=== PATIENT | male | born 1950 | race Caucasian/White ===

== ENCOUNTER 2021-11-15 17:33 | Emergency (ER) | payer MEDICARE ==
[2021-11-15 17:43] VITALS: TEMP 98.4
[2021-11-15] MEDS ORDERED: SODIUM CHLORIDE 0.9% 1,000 ML IV STA (18:18)
--- NOTE | 2021-11-15 18:22 | ED ---
General Adult HPI - General Chief complaint: Syncope Stated complaint: syncope Time Seen by Provider: 11/15/21 17:36 Source: patient, RN/MD Mode of arrival: ambulatory Limitations: no limitations - History of Present Illness Initial comments: 71-year-old patient presents to the emergency department today for evaluation after having a syncopal episode. Patient sat on the couch, states that his head fell back his eyes were wide open and he was making a moaning noise when he was breathing. She went over and was talking to him but he was not responding. She did try chest compressions while he was sitting on the couch. Her son came in and lowered him to the floor and was smacking his cheeks trying to get him to wake. She states the episode lasted about 5 minutes then he started coming around. Patient states that all he remembers is sitting on the couch and putting his head back. He does admit to taking a hit of marijuana several minutes before this episode but this is not unusual form him and he has never had this reaction. He denies any headache, blurred vision, double vision, dizziness, weakness. Denies any chest pain or shortness of breath. Denies any palpitations. Denies any abdominal or back pain. Does have history of aortic aneurysm that has been stented. Patient denies any recent rash, fever, chills, cough, nausea, vomiting, diarrhea, constipation, back pain, numbness, tingling, hematuria, dysuria, urinary urgency, urinary frequency, headache, visual changes, or any other complaints. - Related Data Allergies Allergy/AdvReac Type Severity Reaction Status Date / Time No Known Allergies Allergy Verified 11/15/21 17:56 Review of Systems ROS Statement: Those systems with pertinent positive or pertinent negative responses have been documented in the HPI. ROS Other: All systems not noted in ROS Statement are negative. Past Medical History Past Medical History: COPD History of Any Multi-Drug Resistant Organisms: None Reported Past Surgical History: No Surgical Hx Reported Additional Past Surgical History / Comment(s): Stent placed 2018 Past Psychological History: No Psychological Hx Reported Smoking Status: Current every day smoker Past Alcohol Use History: Occasional Past Drug Use History: Marijuana General Exam Limitations: no limitations General appearance: alert, in no apparent distress, other (This is a well- developed, well-nourished elderly male patient in no acute distress.) Eye exam: Present: normal appearance, PERRL, EOMI. Absent: scleral icterus, conjunctival injection, nystagmus, periorbital swelling Respiratory exam: Present: normal lung sounds bilaterally. Absent: respiratory distress, wheezes, rales, rhonchi, stridor Cardiovascular Exam: Present: regular rate, normal rhythm, normal heart sounds. Absent: systolic murmur, diastolic murmur, rubs, gallop, clicks GI/Abdominal exam: Present: soft, normal bowel sounds. Absent: distended, tenderness, guarding, rebound, rigid Neurological exam: Present: alert, oriented X3, CN II-XII intact, other (Strength in all 4 extremities is 5/5.) Psychiatric exam: Present: normal affect, normal mood Skin exam: Present: warm, dry, intact, normal color. Absent: rash Course Vital Signs 11/15/21 17:35 Temperature 98.4 F Pulse Rate 68 Respiratory 18 Rate Blood Pressure 151/89 O2 Sat by Pulse 99 Oximetry EKG Findings - EKG Comments: EKG Findings:: EKG obtained at 1753 shows sinus rhythm with ventricular 70, WI interval 147, QRS duration 114, QTC 415, QTC 436. No evidence of ST elevation or depression. Medical Decision Making - Medical Decision Making 71 year-old male patient presents to the emergency department for evaluation after syncopal episodes. Physical examination is unremarkable. Vital signs within normal range. EKG shows sinus rhythm. Labs reviewed and did reveal elevated d-dimer 3.6. CT angiography of the chest was obtained and was negative for any evidence for pulmonary embolism or other acute abnormalities. Upon reevaluation is resting comfortably in bed states he is feeling well. He is given a option to be discharged follow up with his primary care physician early next week. He agrees to be discharged. Return parameters were discussed in detail. Patient and verbalized understanding and agree with this plan. My attending is Dr. Javed. - Lab Data Result diagrams: 11/15/21 18:29 11/15/21 18:29 Lab Results 11/15/21 11/15/21 11/15/21 Range/Units 18:29 18:29 18:29 WBC 9.5 (3.8-10.6) k/uL RBC 4.36 (4.30-5.90) m/uL Hgb 12.8 L (13.0-17.5) gm/dL Hct 38.9 L (39.0-53.0) % MCV 89.2 (80.0-100.0) fL MCH 29.4 (25.0-35.0) pg MCHC 33.0 (31.0-37.0) g/dL RDW 13.6 (11.5-15.5) % Plt Count 225 (150-450) k/uL MPV 6.8 Neutrophils % 76 % Lymphocytes % 15 % Monocytes % 5 % Eosinophils % 2 % Basophils % 0 % Neutrophils # 7.2 (1.3-7.7) k/uL Lymphocytes # 1.4 (1.0-4.8) k/uL Monocytes # 0.5 (0-1.0) k/uL Eosinophils # 0.2 (0-0.7) k/uL Basophils # 0.0 (0-0.2) k/uL PT 10.2 (9.0-12.0) sec INR 0.9 (<1.2) APTT 22.7 (22.0-30.0) sec D-Dimer 3.65 H (<0.60) mg/L FEU Sodium (137-145) mmol/L Potassium (3.5-5.1) mmol/L Chloride (98-107) mmol/L Carbon Dioxide (22-30) mmol/L Anion Gap mmol/L BUN (9-20) mg/dL Creatinine (0.66-1.25) mg/dL Est GFR (CKD-EPI)AfAm (>60 ml/min/1.73 sqM) Est GFR (CKD-EPI)NonAf (>60 ml/min/1.73 sqM) Glucose (74-99) mg/dL Calcium (8.4-10.2) mg/dL Total Bilirubin (0.2-1.3) mg/dL AST (17-59) U/L ALT (4-49) U/L Alkaline Phosphatase (38-126) U/L Troponin I (0.000-0.034) ng/mL Total Protein (6.3-8.2) g/dL Albumin (3.5-5.0) g/dL Urine Color Light Yellow Urine Appearance Clear (Clear) Urine pH 6.0 (5.0-8.0) Ur Specific [place] 1.006 (1.001-1.035) Urine Protein Negative (Negative) Urine Glucose (UA) Negative (Negative) Urine Ketones Negative (Negative) Urine Blood Negative (Negative) Urine Nitrite Negative (Negative) Urine Bilirubin Negative (Negative) Urine Urobilinogen <2.0 (<2.0) mg/dL Ur Leukocyte Esterase Negative (Negative) 11/15/21 11/15/21 Range/Units 18:29 18:29 WBC (3.8-10.6) k/uL RBC (4.30-5.90) m/uL Hgb (13.0-17.5) gm/dL Hct (39.0-53.0) % MCV (80.0-100.0) fL MCH (25.0-35.0) pg MCHC (31.0-37.0) g/dL RDW (11.5-15.5) % Plt Count (150-450) k/uL MPV Neutrophils % % Lymphocytes % % Monocytes % % Eosinophils % % Basophils % % Neutrophils # (1.3-7.7) k/uL Lymphocytes # (1.0-4.8) k/uL Monocytes # (0-1.0) k/uL Eosinophils # (0-0.7) k/uL Basophils # (0-0.2) k/uL PT (9.0-12.0) sec INR (<1.2) APTT (22.0-30.0) sec D-Dimer (<0.60) mg/L FEU Sodium 136 L (137-145) mmol/L Potassium 3.7 (3.5-5.1) mmol/L Chloride 106 (98-107) mmol/L Carbon Dioxide 22 (22-30) mmol/L Anion Gap 8 mmol/L BUN 17 (9-20) mg/dL Creatinine 1.06 (0.66-1.25) mg/dL Est GFR (CKD-EPI)AfAm 82 (>60 ml/min/1.73 sqM) Est GFR (CKD-EPI)NonAf 71 (>60 ml/min/1.73 sqM) Glucose 128 H (74-99) mg/dL Calcium 8.5 (8.4-10.2) mg/dL Total Bilirubin 0.5 (0.2-1.3) mg/dL AST 27 (17-59) U/L ALT 17 (4-49) U/L Alkaline Phosphatase 98 (38-126) U/L Troponin I <0.012 (0.000-0.034) ng/mL Total Protein 6.6 (6.3-8.2) g/dL Albumin 3.7 (3.5-5.0) g/dL Urine Color Urine Appearance (Clear) Urine pH (5.0-8.0) Ur Specific [place] (1.001-1.035) Urine Protein (Negative) Urine Glucose (UA) (Negative) Urine Ketones (Negative) Urine Blood (Negative) Urine Nitrite (Negative) Urine Bilirubin (Negative) Urine Urobilinogen (<2.0) mg/dL Ur Leukocyte Esterase (Negative) - Radiology Data Radiology results: report reviewed, image reviewed Two-view x-ray of the chest is obtained. Report was reviewed in its entirety. Impression by Dr. Batista shows normal chest. CT chest angiography for PE was obtained. Report was reviewed in its entirety. Impression by Dr. Batista shows no evidence of pulmonary embolism. 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 No dissection. Disposition Clinical Impression: Syncope Disposition: HOME SELF-CARE Condition: Good Instructions (If sedation given, give patient instructions): Syncope (ED) Additional Instructions: Follow up with your primary care physician or channeling machine operator as soon as possible. Increase fluids. Rest. Return to the emergency department immediately for any return of symptoms. Is patient prescribed a controlled substance at d/c from ED?: No Referrals: Nonstaff,Physician [Primary Care Provider] - 1-2 days Time of Disposition: 20:14
[2021-11-15 18:37] LABS: Basophils % (A) 0 %; Eosinophils # (A) 0.2 k/uL (0-0.7); Eosinophils % (A) 2 %; HCT 38.9 % (39.0-53.0); HGB 12.8 gm/dL (13.0-17.5); Lymphocytes # (A) 1.4 k/uL (1.0-4.8); Lymphocytes % (A) 15 %; MCH 29.4 pg (25.0-35.0); MCV 89.2 fL (80.0-100.0); Mean Platelet Volume 6.8; Monocytes # (A) 0.5 k/uL (0-1.0); Monocytes % (A) 5 %; Neutrophils # (A) 7.2 k/uL (1.3-7.7); Neutrophils % (A) 76 %; Platelet Count 225 k/uL (150-450); RBC 4.36 m/uL (4.30-5.90); RDW 13.6 % (11.5-15.5); WBC 9.5 k/uL (3.8-10.6)
[2021-11-15 18:46] LABS: Albumin 3.7 g/dL (3.5-5.0); Calcium 8.5 mg/dL (8.4-10.2); Potassium 3.7 mmol/L (3.5-5.1); Total Bilirubin 0.5 mg/dL (0.2-1.3); Total Protein 6.6 g/dL (6.3-8.2)
[2021-11-15 18:50] LABS: Appearance,Urine Clear (Clear); Bilirubin,Urine Negative (Negative); Blood,Urine Negative (Negative); Color,Urine Light Yellow; Glucose,Urine (UA) Negative (Negative); Ketones,Urine Negative (Negative); Leukocyte Esterase,Urine Negative (Negative); Nitrite,Urine Negative (Negative); Protein,Urine Negative (Negative); Specific Gravity,Urine 1.006 (1.001-1.035); Urobilinogen,Urine <2.0 mg/dL (<2.0)
[2021-11-15 18:54] LABS: INR 0.9 (<1.2); Partial Thromboplastin Time 22.7 sec (22.0-30.0); Prothrombin Time 10.2 sec (9.0-12.0)
--- NOTE | 2021-11-15 19:12 | XR ---
EXAMINATION TYPE: XR chest 2V DATE OF EXAM: 11/15/2021 COMPARISON: NONE HISTORY: Syncope TECHNIQUE: FINDINGS: Heart and mediastinum are normal. Lungs are clear. Diaphragm is normal. Bony thorax is inta ct. IMPRESSION: Normal chest
--- NOTE | 2021-11-15 19:37 | CT ---
EXAMINATION TYPE: CT chest angio for PE DATE OF EXAM: 11/15/2021 COMPARISON: None HISTORY: Elevated d-dimer; syncope CT DLP: 415.4 mGycm Automated exposure control for dose reduction was used. CONTRAST: Performed with IV Contrast, patient injected with 100 mL of Isovue 370. Images obtained from the thoracic inlet to the diaphragm with IV contrast. There are Three-D postproc essed images. The lungs are clear of consolidation. There is some mild reticular interstitial density in the tobacco blender ior lung aldana suggestive of mild fibrosis and subsegmental atelectasis. Heart size is fairly normal . There is irregular plaque on the posterior wall of the descending thoracic aorta. 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 No mediastinal adenopathy. The ascending aort a measures 4 cm. No dissection. There is no evidence of filling defect in the pulmonary arteries. There are no hilar masses. The thoracic spine appears intact. No compression fracture. Sternum is intact. IMPRESSION: No evidence of pulmonary embolism. There is a mild 4 cm aneurysm of the ascending aorta. No dissectio n.
[2021-11-15 20:59] VITALS: BP 111/69; PULSE 70; RESP 16
== END 2021-11-15 20:59 | disposition home or self-care (01) ==
LOC: EC 17:33
DX: R55 Syncope and collapse (principal); J44.9 Chronic obstructive pulmonary disease, unspecified; F17.200 Nicotine dependence, unspecified, uncomplicated
CPT/HCPCS: 36415; 85379; 80053; 84484; 85025; 85610; 85730; 81003; 71046; 71275; 99284; 96360; Q9967

== ENCOUNTER 2022-06-16 12:11 | Emergency (ER) | payer MEDICARE ==
--- NOTE | 2022-06-16 13:12 | ED ---
General Adult HPI - General Source: patient, RN notes reviewed Mode of arrival: ambulatory Limitations: no limitations <Arthur Forrester - Last Filed: 06/16/22 13:11> <Cresencio Townsend - Last Filed: 06/16/22 15:22> - General Chief complaint: Neuro Symptoms/Deficit Stated complaint: Vertigo,Sent by Urgent Care Time Seen by Provider: 06/16/22 13:04 - History of Present Illness Initial comments: 72-year-old male presents emergency Department chief complaint of dizziness. Patient states on Wednesday he woke up early in the morning states that he was very lightheaded, dizzy states he is unsteady on his feet he states that he went back to bed and laid there for several hours. He states he had no symptoms at rest but it got up he had worsening symptoms. Patient states she still remains to have intermittent symptoms, feeling foggy over the last 3 days. Patient was seen at urgent care sent here for further evaluation. Patient denies chest pain, headache, blurred vision, focal weakness, nausea vomiting. (Arthur Forrester) This is a patient that was seen initially in the waiting room is a 72-year-old male who states 3 days ago he got out of bed the whole room was spinning and he had a old on the ren walk to the bathroom. Patient states this has happened in the past for multiple times but normally it resolves on its own. Patient states it has not resolved I did get a little bit better on Wednesday but continued today so he went to urgent care and urgent care sent him in to see us currently he states things are still moving a little but not as bad as it has been. Patient states this morning he drinks multiple was very nauseated and vomited times one. Patient denies any numbness or weakness. Patient denies any headache per patient states he does have ringing in both of his ears this is a symptom he has also had in the past but it has resolved on its own normally and is yet to resolve. Patient denies any palpitations chest pain difficulty breathing first breath per patient denies any fever chills or cough. Patient has probably patient's nausea vomiting diarrhea. (Cresencio Townsend) - Related Data Home Medications Medication Instructions Recorded Confirmed Levothyroxine Sodium [Synthroid] 175 mcg PO AC-BRKFST 06/16/22 06/16/22 Losartan Potassium 100 mg PO DAILY 06/16/22 06/16/22 Meloxicam [Mobic] 15 mg PO DAILY 06/16/22 06/16/22 Omeprazole [PriLOSEC] 20 mg PO HS 06/16/22 06/16/22 Simvastatin [Zocor] 20 mg PO HS 06/16/22 06/16/22 amLODIPine [Norvasc] 5 mg PO AC-SUPPER 06/16/22 06/16/22 Previous Rx's Medication Instructions Recorded Meclizine [Antivert] 25 mg PO TID #20 tab 06/16/22 Allergies Allergy/AdvReac Type Severity Reaction Status Date / Time No Known Allergies Allergy Verified 06/16/22 15:12 Review of Systems ROS Other: All systems not noted in ROS Statement are negative. <Arthur Forrester - Last Filed: 06/16/22 13:11> ROS Other: All systems not noted in ROS Statement are negative. <Cresencio Townsend - Last Filed: 06/16/22 15:22> ROS Statement: Those systems with pertinent positive or pertinent negative responses have been documented in the HPI. Past Medical History Past Medical History: COPD, Hyperlipidemia, Hypertension History of Any Multi-Drug Resistant Organisms: None Reported Past Surgical History: No Surgical Hx Reported Additional Past Surgical History / Comment(s): Stent placed 2018 Past Psychological History: No Psychological Hx Reported Smoking Status: Former smoker Past Alcohol Use History: Occasional Past Drug Use History: Marijuana <Arthur Forrester - Last Filed: 06/16/22 13:11> General Exam Limitations: no limitations <Arthur Forrester - Last Filed: 06/16/22 13:11> <Cresencio Townsend - Last Filed: 06/16/22 15:22> - General Exam Comments Initial Comments: GENERAL: Patient is well-developed and well-nourished. Patient is nontoxic and well- hydrated and is in mild distress. ENT: Neck is soft and supple. No significant lymphadenopathy is noted. Oropharynx is clear. Moist mucous membranes. Neck has full range of motion without eliciting any pain. EYES: The sclera were anicteric and conjunctiva were pink and moist. Extraocular movements were intact and pupils were equal round and reactive to light. Eyel ids were unremarkable. PULMONARY: Unlabored respirations. Good breath sounds bilaterally. No audible rales rhonchi or wheezing was noted. CARDIOVASCULAR: There is a regular rate and rhythm without any murmurs gallops or rubs. ABDOMEN: Soft and nontender with normal bowel sounds. SKIN: Skin is clear with no lesions or rashes and otherwise unremarkable. NEUROLOGIC: Patient is alert and oriented x3. Cranial nerves II through XII are grossly intact. Motor and sensory are also intact. Normal speech, volume and content. Symmetrical smile. Finger nose testing is normal bilaterally MUSCULOSKELETAL: Normal extremities with adequate strength and full range of motion. No lower extremity swelling or edema. No calf tenderness. LYMPHATICS: No significant lymphadenopathy is noted PSYCHIATRIC: Normal psychiatric evaluation. (Cresencio Townsend) Course Vital Signs 06/16/22 13:00 Temperature 97.7 F Pulse Rate 80 Respiratory 17 Rate Blood Pressure 153/79 O2 Sat by Pulse 98 Oximetry Medical Decision Making - Lab Data Result diagrams: 06/16/22 14:21 06/16/22 14:21 <Cresencio Townsend - Last Filed: 06/16/22 15:22> - Medical Decision Making Was pt. sent in by a medical professional or institution? @ -Sent in by an urgent care Did you speak to anyone other than the patient for history? @ -I spoke with his for some of the history Did you review nursing and triage notes? @ -I agreed with the nurse he knows and triage notes Were old charts reviewed? @ -No old charts were reviewed Differential Diagnosis? @ -Mnire's disease, vertigo, acoustic neuroma, cerebellar bleed EKG interpreted by me (3pts min.)? @ -EKG shows sinus rhythm at [address] interval 152 QRS is 113 QT interval 426 QTC is 427 per patient's EKG shows no ST segment elevation or depression. X-rays interpreted by me (1pt min.)? @ -[none] CT interpreted by me (1pt min.)? @ -Computed tomography scan showed no acute abnormality there was some fluid in the mastoid on the right however clinically he does not have mastoiditis U/S interpreted by me (1pt. min.)? @ -None What testing was considered but not performed? (CT, X-rays, U/S, labs)? Why? @ -I considered a computed tomography scan shows the head and neck however patient was having no neurologic deficit that I could appreciate cerebellar function was good so at this time I did not do the angiogram. What meds were considered but not given? Why? @ -None Did you discuss the management of the patient with other professionals? @ -None Did you reconcile home meds? @ -No Was smoking cessation discussed for >3mins.? @ -I discussed smoking cessation for greater than 3 minutes. The risk of smoking were discussed with the patient including but not limited to risks of cancer, stroke, coronary artery disease and COPD. Also discussed with patient were multiple methods of quitting smoking. Lastly we discussed the financial cost of smoking. Was critical care preformed (if so, how long)? @ -None Were there social determinants of health that impacted care today? How? (Homelessness, low income, unemployed, alcoholism, drug addiction, transportation, low edu. Level, literacy, decrease access to med. care, care home, rehab)? @ -No Was there de-escalation of care discussed even if they declined? (Discuss DNR or withdrawal of care, Hospice)? @ -No What co-morbidities impacted this encounter? (DM, HTN, Smoking, COPD, CAD, Cancer, CVA, Hep., AIDS, mental health diagnosis, sleep apnea, morbid obesity)? @ -No Was patient admitted / discharged? @ -Discharged with Antivert and patient was instructed to follow-up with ENT if symptoms don't resolve Undiagnosed new problem with uncertain prognosis? @ -No Drug Therapy requiring intensive monitoring for toxicity (Heparin, Nitro, Insulin, Cardizem)? @ -No Were any procedures done? @ -No Diagnosis/symptom? @ -Vertigo Acute, or Chronic, or Acute on Chronic? @ -Acute Uncomplicated (without systemic symptoms) or Complicated (systemic symptoms)? @ -Uncomplicated Side effects of treatment? @ -None Exacerbation, Progression, or Severe Exacerbation] @ -No Poses a threat to life or bodily function? @ -No (Cresencio Townsend) - Lab Data Lab Results 06/16/22 06/16/22 06/16/22 Range/Units 14:21 14:21 14:21 WBC 7.1 (3.8-10.6) k/uL RBC 4.82 (4.30-5.90) m/uL Hgb 13.8 (13.0-17.5) gm/dL Hct 42.0 (39.0-53.0) % MCV 87.3 (80.0-100.0) fL MCH 28.7 (25.0-35.0) pg MCHC 32.9 (31.0-37.0) g/dL RDW 13.3 (11.5-15.5) % Plt Count 250 (150-450) k/uL MPV 7.1 Neutrophils % 74 % Lymphocytes % 18 % Monocytes % 5 % Eosinophils % 2 % Basophils % 1 % Neutrophils # 5.2 (1.3-7.7) k/uL Lymphocytes # 1.2 (1.0-4.8) k/uL Monocytes # 0.4 (0-1.0) k/uL Eosinophils # 0.1 (0-0.7) k/uL Basophils # 0.0 (0-0.2) k/uL PT (9.0-12.0) sec INR (<1.2) APTT (22.0-30.0) sec Sodium 140 (137-145) mmol/L Potassium 4.2 (3.5-5.1) mmol/L Chloride 109 H (98-107) mmol/L Carbon Dioxide 24 (22-30) mmol/L Anion Gap 7 mmol/L BUN 10 (9-20) mg/dL Creatinine 1.00 (0.66-1.25) mg/dL Est GFR (CKD-EPI)AfAm 87 (>60 ml/min/1.73 sqM) Est GFR (CKD-EPI)NonAf 75 (>60 ml/min/1.73 sqM) Glucose 99 (74-99) mg/dL Calcium 9.2 (8.4-10.2) mg/dL Magnesium 1.9 (1.6-2.3) mg/dL Total Bilirubin 0.4 (0.2-1.3) mg/dL AST 27 (17-59) U/L ALT 22 (4-49) U/L Alkaline Phosphatase 94 (38-126) U/L Troponin I <0.012 (0.000-0.034) ng/mL Total Protein 6.9 (6.3-8.2) g/dL Albumin 3.9 (3.5-5.0) g/dL 06/16/22 Range/Units 14:21 WBC (3.8-10.6) k/uL RBC (4.30-5.90) m/uL Hgb (13.0-17.5) gm/dL Hct (39.0-53.0) % MCV (80.0-100.0) fL MCH (25.0-35.0) pg MCHC (31.0-37.0) g/dL RDW (11.5-15.5) % Plt Count (150-450) k/uL MPV Neutrophils % % Lymphocytes % % Monocytes % % Eosinophils % % Basophils % % Neutrophils # (1.3-7.7) k/uL Lymphocytes # (1.0-4.8) k/uL Monocytes # (0-1.0) k/uL Eosinophils # (0-0.7) k/uL Basophils # (0-0.2) k/uL PT 9.6 (9.0-12.0) sec INR 0.9 (<1.2) APTT 23.7 (22.0-30.0) sec Sodium (137-145) mmol/L Potassium (3.5-5.1) mmol/L Chloride (98-107) mmol/L Carbon Dioxide (22-30) mmol/L Anion Gap mmol/L BUN (9-20) mg/dL Creatinine (0.66-1.25) mg/dL Est GFR (CKD-EPI)AfAm (>60 ml/min/1.73 sqM) Est GFR (CKD-EPI)NonAf (>60 ml/min/1.73 sqM) Glucose (74-99) mg/dL Calcium (8.4-10.2) mg/dL Magnesium (1.6-2.3) mg/dL Total Bilirubin (0.2-1.3) mg/dL AST (17-59) U/L ALT (4-49) U/L Alkaline Phosphatase (38-126) U/L Troponin I (0.000-0.034) ng/mL Total Protein (6.3-8.2) g/dL Albumin (3.5-5.0) g/dL Disposition <Arthur Forrester - Last Filed: 06/16/22 13:11> Is patient prescribed a controlled substance at d/c from ED?: No Time of Disposition: 15:21 <Cresencio Townsend - Last Filed: 06/16/22 15:22> Clinical Impression: Vertigo Disposition: HOME SELF-CARE Condition: Good Prescriptions: Meclizine [Antivert] 25 mg PO TID #20 tab Referrals: None,Stated [REFERRING] - 1-2 days
[2022-06-16 14:38] LABS: Basophils % (A) 1 %; Eosinophils # (A) 0.1 k/uL (0-0.7); Eosinophils % (A) 2 %; HGB 13.8 gm/dL (13.0-17.5); Lymphocytes # (A) 1.2 k/uL (1.0-4.8); Lymphocytes % (A) 18 %; MCH 28.7 pg (25.0-35.0); MCHC 32.9 g/dL (31.0-37.0); MCV 87.3 fL (80.0-100.0); Mean Platelet Volume 7.1; Monocytes # (A) 0.4 k/uL (0-1.0); Monocytes % (A) 5 %; Neutrophils # (A) 5.2 k/uL (1.3-7.7); Neutrophils % (A) 74 %; Platelet Count 250 k/uL (150-450); RBC 4.82 m/uL (4.30-5.90); RDW 13.3 % (11.5-15.5); WBC 7.1 k/uL (3.8-10.6)
[2022-06-16 14:48] LABS: Albumin 3.9 g/dL (3.5-5.0); Calcium 9.2 mg/dL (8.4-10.2); Magnesium 1.9 mg/dL (1.6-2.3); Potassium 4.2 mmol/L (3.5-5.1); Total Bilirubin 0.4 mg/dL (0.2-1.3); Total Protein 6.9 g/dL (6.3-8.2)
[2022-06-16 14:51] LABS: INR 0.9 (<1.2); Partial Thromboplastin Time 23.7 sec (22.0-30.0); Prothrombin Time 9.6 sec (9.0-12.0)
--- NOTE | 2022-06-16 14:51 | CT ---
EXAMINATION TYPE: CT brain wo con DATE OF EXAM: 06/16/2022 COMPARISON: None HISTORY: 72-year-old male with dizziness, vomiting, tenderness, vertigo TECHNIQUE: Examination was done in axial plane without intravenous contrast. Coronal and sagittal r econstructions performed. CT DLP: 1253.4 mGycm Automated exposure control for dose reduction was used. FINDINGS: There is no evidence of acute intracranial hemorrhage, acute ischemic changes, mass, mass-effect, or extra-axial fluid collection. There is no effacement of cerebral sulci or basal subarachnoid cister ns. There is no hydrocephalus. There is no midline shift. Laws-white matter distinction is preserv ed. Mild age related cerebral cortical volume loss. Mild mucosal thickening anterior ethmoid air cells. Old blowout fracture medial right orbital wall. S ome fluid within the inferior right mastoid air cells. IMPRESSION: Mild age-related cerebral cortical atrophy. No acute intracranial abnormality seen. Some fluid within the inferior right mastoid air cells. Correlate for any mastoid pain to exclude mas toiditis.
[2022-06-16] MEDS ORDERED: MECLIZINE 25 MG TAB PO STA (15:09)
[2022-06-16 15:33] VITALS: BP 151/81; PULSE 84; RESP 18; TEMP 98.1
== END 2022-06-16 15:33 | disposition home or self-care (01) ==
LOC: EC 12:11
DX: R42 Dizziness and giddiness (principal); I10 Essential (primary) hypertension; J44.9 Chronic obstructive pulmonary disease, unspecified; E78.5 Hyperlipidemia, unspecified; F12.90 Cannabis use, unspecified, uncomplicated; Z87.891 Personal history of nicotine dependence; Z79.899 Other long term (current) drug therapy
CPT/HCPCS: 36415; 70450; 80053; 83735; 84484; 85025; 85610; 85730; 93005; 99284

== ENCOUNTER → 2024-10-05 | Outpatient (CLI) | payer MEDICARE ==
[2024-10-05 09:02] LABS: African American GFR (CKD) >90 (>60 ml/min/1.73 sqM); Blood Urea Nitrogen 13 mg/dL (9-20); Non-African American GFR(CKD) 80 (>60 ml/min/1.73 sqM)
--- NOTE | 2024-10-05 10:58 | CT ---
EXAMINATION TYPE: CT soft tissue neck w con DATE OF EXAM: 10/05/2024 9:42 AM COMPARISON: . CLINICAL INDICATION: Male, 74 years old with history of R59.0 enlarged lymph nodes; PHH, enlarged lym ph nodes, pt states a hoarseness to his voice. TECHNIQUE: CT soft tissues of the neck after administration of: 90ml mL of Isovue 300 with IV Contras t, coronal and sagittal reconstructions performed. CT DLP: 498 mGycm, Automated exposure control for dose reduction was used. FINDINGS: Visualized intracranial structures show a dominant right vertebral artery but otherwise without gross abnormality. There is rightward nasal septal deviation. Paranasal sinuses well pneumatized. There is some opacification of the inferior right mastoid air cells that can be correlated for any focal pain to exclude mastoiditis. Orbits and globes are intact. The nasopharynx is clear. Mild bilateral palatine tonsillar hypertrophy with a few punctate calcifications suggesting sequela o f prior infection. Epiglottis and prevertebral soft tissues are satisfactory. There may be some mild circumferential soft tissue narrowing at the level of the false vocal cords, r efer to axial image 64. The vocal folds themselves located more inferiorly appear fairly symmetric an d are partially closed. Tracheal column is clear. There is mild to moderate emphysematous change in the visualized upper lung s. Thyroid gland is small/atrophic. Mild atherosclerotic calcifications of the bilateral carotid bulbs. Some irregular glands are satisfactory. Parotid glands atrophic. Scattered nonenlarged lymph nodes on both sides in the upper and mid neck. Suspect a 1.3 cm sebaceous cyst at the right lateral base of the neck that should be correlated clini berkley. Bones: Moderate to advanced degenerative disc disease throughout. Straightening of the normal cervica l lordosis. IMPRESSION: 1. Some possible mild annular soft tissue thickening of the mucosal space with circumferential narrow ing at the level of the false vocal folds. The true vocal folds themselves located just below appear fairly symmetric and are partially closed on the exam. Recommend direct visualization to exclude any mucosal lesion. 2. COPD with mild to moderate emphysema in the upper lungs. 3. Atrophic thyroid gland. Partially atrophic parotid glands. 4. Suspect a 1.3 cm sebaceous cyst right lateral base of the neck. Clinically correlate. [facility], Workstation: [id number], 10/05/2024 10:55 AM
== END | disposition home or self-care (01) ==
LOC: RADCTMAIN 08:22
PROVIDERS: ATTEND Otolaryngology
DX: J44.9 Chronic obstructive pulmonary disease, unspecified (principal); J43.9 Emphysema, unspecified; E03.4 Atrophy of thyroid (acquired); R59.0 Localized enlarged lymph nodes
CPT/HCPCS: 82565; 84520; 70491; 36415; Q9967